=== PATIENT | male | born 1960 | race American Indian/Alaskan Native ===

== ENCOUNTER 2017-05-02 10:43 | Outpatient (CLI) | payer MEDICAID ==
--- NOTE | 2017-05-02 13:05 | Ultrasound Report ---
Renal ultrasound: Chronic kidney disease. Both kidneys appeared to have mild increased in overall echogenicity. The overall findings bilaterally otherwise appear generally unremarkable. The right renal length is 10.9 cm and the left renal length is 12.2 cm. The urinary bladder is somewhat contracted but not otherwise remarkable. Impression: Echogenic kidneys consistent with medical.
== END 2017-05-02 10:44 | disposition home or self-care (01) ==
LOC: US 10:43
PROVIDERS: ATTEND Internal Medicine Nephrology
DX: N18.3 Chronic kidney disease, stage 3 (moderate) (principal)
CPT/HCPCS: 76770

== ENCOUNTER 2018-06-09 11:45 | Inpatient (IN) | payer OTHER, MEDICAID ==
--- NOTE | 2018-06-09 13:15 | Emergency Department Report ---
HPI - General Chief Complaint: Arrhythmia/Palpitations Time Seen by Provider: 06/09/18 13:01 - HPI HPI: Room 3 The patient is a 57-year-old male presents with a chief complaint of palpitations. The patient states he awakened this morning at 05:00 and his usual state of health. The patient states at approximately 10:00 he felt his heart going to an abnormal rhythm. Patient states he developed chest pressure, tightness around his neck and diaphoresis. The patient states he was short of breath as well. Patient denied nausea or vomiting. The patient states he took an extra amiodarone (as recommended by his jewel oliving machine operator) at 11:30. While waiting to be seen in the ED the patient states his symptoms resolved spontaneously. The patient now states he feels "great" and has no complaints. Location: Cardiovascular system Duration: [See above] Quality: Pressure, palpitation Severity: Currently 0/10 Modifying factors: [see above] Context: [see above] Mode of transportation: Unknown ED Past Medical Hx - Past Medical History Previous Medical History?: Yes Hx Hypertension: Yes Additional medical history: A fib - Surgical History Past Surgical History?: No Additional Surgical History: Scalp growth excision - Family History Family history: no significant - Social History Smoking Status: Former Smoker (none for over 5 years) Substance Use Type: None (denies illicit drug use) ED Review of Systems ROS: Stated complaint: CHEST PAIN Other details as noted in HPI Constitutional: diaphoresis Eyes: denies: eye pain ENT: denies: throat pain Respiratory: shortness of breath Cardiovascular: chest pain, palpitations Endocrine: no symptoms reported Gastrointestinal: denies: abdominal pain, nausea, vomiting Genitourinary: denies: dysuria Musculoskeletal: denies: back pain Neurological: denies: headache Physical Exam - Physical Exam Vital Signs: Vital Signs 06/09/18 06/09/18 11:54 13:05 Temperature 98 F Pulse Rate 100 H Respiratory 18 18 Rate Blood Pressure 135/98 O2 Sat by Pulse 98 Oximetry Physical Exam: GENERAL: The patient is well-developed well-nourished male lying on stretcher not appear to be in acute distress. [] HEENT: Normocephalic. Atraumatic. Extraocular motions are intact. Patient has moist mucous membranes. NECK: Supple. Trachea midline CHEST/LUNGS: Clear to auscultation. There is no respiratory distress noted. HEART/CARDIOVASCULAR: Regular. There is no tachycardia. There is no gallop rub or murmur. ABDOMEN: Abdomen is soft, nontender. Patient has normal bowel sounds. There is no abdominal distention. SKIN: There is no rash. There is no edema. There is no diaphoresis. NEURO: The patient is awake, alert, and oriented. The patient is cooperative. The patient has normal speech MUSCULOSKELETAL: There is no evidence of acute injury. ED Course Vital Signs 06/09/18 06/09/18 11:54 13:05 Temperature 98 F Pulse Rate 100 H Respiratory 18 18 Rate Blood Pressure 135/98 O2 Sat by Pulse 98 Oximetry - Reevaluation(s) Reevaluation #1: 06/09/18 14:36 Patient states he does not wish to be admitted to the hospital despite his jewel oliving machine operator's recommendations. Patient verbalized understanding of potential increased morbidity and/or mortality should he leave the hospital AGAINST MEDICAL ADVICE. - Consultations Consultation #1: 06/09/18 14:29 Cardiology paged 06/09/18 14:[address] Ceron-recommends patient be admitted to the hospital given chest pain. ED Medical Decision Making - Lab Data Result diagrams: 06/09/18 13:13 06/09/18 13:13 - EKG Data -: EKG Interpreted by Me Rate: tachycardia (EKG #1 time 11:51 reveals A. fib with a rapid ventricular response of 148 bpm) - EKG Data When compared to previous EKG there are: previous EKG unavailable Interpretation: other (EKG #2 time 12:12 reveals normal sinus rhythm at 78 bpm. T-wave inversions in leads 1 and aVL) - Differential Diagnosis A. fib with RVR, ACS, GERD, pericarditis Critical care attestation.: If time is entered above; I have spent that time in minutes in the direct care of this critically ill patient, excluding procedure time. ED Disposition Clinical Impression: Atrial fibrillation with rapid ventricular response Disposition: -07 LEFT AGAINST MED ADVICE Is pt being admited?: No Does the pt Need Aspirin: Yes Condition: Undetermined Referrals: PRIMARY CARE, [Primary Care Provider] - 3-5 Days Time of Disposition: 14:37 (patient leaving AMA)
[2018-06-09 13:43] LABS: Basophils % (Auto) 0.5 % (0.0-1.8); Eosinophils # (Auto) 0.1 K/mm3 (0.0-0.4); Eosinophils % (Auto) 1.6 % (0.0-4.3); Hematocrit 45.3 % (35.5-45.6); Hemoglobin 15.6 gm/dl (11.8-15.2); Lymphocytes # (Auto) 2.7 K/mm3 (1.2-5.4); Lymphocytes % (Auto) 30.3 % (13.4-35.0); Mean Corpuscular HGB Conc 34 % (32-34); Mean Corpuscular Hemoglobin 32 pg (28-32); Mean Corpuscular Volume 93 fl (84-94); Monocytes # (Auto) 0.7 K/mm3 (0.0-0.8); Monocytes % (Auto) 8.4 % (0.0-7.3); Platelet Count 165 K/mm3 (140-440); Red Blood Count 4.87 M/mm3 (3.65-5.03); Red Cell Distribution Width 14.2 % (13.2-15.2)
[2018-06-09 14:21] LABS: Creatine Kinase MB 4.4 ng/mL (0.0-4.0)
[2018-06-09 14:22] LABS: BUN/Creatinine Ratio 12; Blood Urea Nitrogen 21 mg/dL (9-20); Calcium 9.1 mg/dL (8.4-10.2); Hemolysis Index 17
[2018-06-09] MEDS ORDERED: ASPIRIN PO ONE (14:37)
--- NOTE | 2018-06-09 16:21 | XRay Report ---
FINAL REPORT EXAM: XR CHEST 1V AP HISTORY: chest pain TECHNIQUE: upright single view chest PRIORS: None. FINDINGS: Cardiac and mediastinal contours are unremarkable. No focal pulmonary infiltrate is identified. No pleural fluid collection seen. Pulmonary vasculature is unremarkable. IMPRESSION: Negative single-view chest
[2018-06-09] MEDS ORDERED: SODIUM CHLORIDE FLUSH SYRINGE 10 ML IV PRN (16:59)
[2018-06-09] MEDS ORDERED: ZOFRAN IV PRN (16:59)
[2018-06-09] MEDS ORDERED: TYLENOL PO PRN (16:59)
--- NOTE | 2018-06-09 16:59 | History and Physical Report ---
History of Present Illness Date of examination: 06/09/18 Date of admission: 06/09/2018 Chief complaint: Chief complaint: Palpitations and chest pressure since 10 AM History of present illness: LISA: 57-year-old black male with history of hypertension and atrial fibrillation presents with palpitations and chest pressure since 10 AM. He also developed tightness around his neck and diaphoresis. Also developed some shortness of breath. Patient is on amiodarone. Patient took a extra amiodarone on the advise of his trial justice. While waiting in the emergency room the patient's symptoms resolved spontaneously. Has no complaints now. Chest pressure was about 5 on scale of 1-10. Resolved spontaneously. No exacerbating or relieving factors. Past Medical History: Hypertension: Yes Additional medical history: A fib Surgical History: Scalp growth excision Family History: Htn Social History: Former Smoker (none for over 5 years) Substance Use Type: None (denies illicit drug use) Review of Systems ROS: Stated complaint: CHEST PAIN Other details as noted in HPI Constitutional: diaphoresis Eyes: denies: eye pain ENT: denies: throat pain Respiratory: shortness of breath Cardiovascular: chest pain, palpitations Endocrine: no symptoms reported Gastrointestinal: denies: abdominal pain, nausea, vomiting Genitourinary: denies: dysuria Musculoskeletal: denies: back pain Neurological: denies: headache Medications and Allergies Allergies Allergy/AdvReac Type Severity Reaction Status Date / Time amoxicillin Allergy Hives Verified 06/09/18 13:10 cephalexin monohydrate AdvReac BLISTERS Unverified 05/02/17 10:45 [From Keflex] AND WHELPS valacyclovir HCl AdvReac BLISTERS Unverified 05/02/17 10:45 [From Valtrex] AND WHELPS ON SKIN Exam - Physical Exam Narrative exam: Lying in bed comfortably - Constitutional Vitals: Temp Pulse Resp BP Pulse Ox 98 F 62 13 145/96 95 06/09/18 11:54 06/09/18 15:15 06/09/18 15:15 06/09/18 15:15 06/09/18 15:15 General appearance: Present: no acute distress, well-nourished - EENT Eyes: Present: PERRL ENT: hearing intact, clear oral mucosa - Neck Neck: Present: supple, normal ROM - Respiratory Respiratory effort: normal Respiratory: bilateral: CTA - Cardiovascular Heart rate: 60 Rhythm: irregularly irregular Heart Sounds: Present: S1 & S2. Absent: rub, click - Extremities Extremities: no ischemia, pulses intact, pulses symmetrical, No edema Peripheral Pulses: within normal limits - Abdominal General gastrointestinal: Present: soft, non-tender, non-distended, normal bowel sounds Male genitourinary: Present: normal - Rectal Rectal Exam: deferred - Integumentary Integumentary: Present: clear, warm, dry - Musculoskeletal Musculoskeletal: gait normal, strength equal bilaterally - Psychiatric Psychiatric: appropriate mood/affect, intact judgment & insight - Neurologic Neurologic: CNII-XII intact, moves all extremities - Allied Health Allied health notes reviewed: nursing, case management Results - Labs CBC & Chem 7: 06/09/18 13:13 06/09/18 13:13 Labs: Laboratory Last Values WBC 8.8 K/mm3 (4.5-11.0) 06/09/18 13:13 RBC 4.87 M/mm3 (3.65-5.03) 06/09/18 13:13 Hgb 15.6 gm/dl (11.8-15.2) H 06/09/18 13:13 Hct 45.3 % (35.5-45.6) 06/09/18 13:13 MCV 93 fl (84-94) 06/09/18 13:13 MCH 32 pg (28-32) 06/09/18 13:13 MCHC 34 % (32-34) 06/09/18 13:13 RDW 14.2 % (13.2-15.2) 06/09/18 13:13 Plt Count 165 K/mm3 (140-440) 06/09/18 13:13 Lymph % (Auto) 30.3 % (13.4-35.0) 06/09/18 13:13 [place] % (Auto) 8.4 % (0.0-7.3) H 06/09/18 13:13 Eos % (Auto) 1.6 % (0.0-4.3) 06/09/18 13:13 Baso % (Auto) 0.5 % (0.0-1.8) 06/09/18 13:13 Lymph # 2.7 K/mm3 (1.2-5.4) 06/09/18 13:13 [place] # 0.7 K/mm3 (0.0-0.8) 06/09/18 13:13 Eos # 0.1 K/mm3 (0.0-0.4) 06/09/18 13:13 Baso # 0.0 K/mm3 (0.0-0.1) 06/09/18 13:13 Seg Neutrophils % 59.2 % (40.0-70.0) 06/09/18 13:13 Seg Neutrophils # 5.2 K/mm3 (1.8-7.7) 06/09/18 13:13 Sodium 144 mmol/L (137-145) 06/09/18 13:13 Potassium 3.4 mmol/L (3.6-5.0) L 06/09/18 13:13 Chloride 103.7 mmol/L (98-107) 06/09/18 13:13 Carbon Dioxide 27 mmol/L (22-30) 06/09/18 13:13 Anion Gap 17 mmol/L 06/09/18 13:13 BUN 21 mg/dL (9-20) H 06/09/18 13:13 Creatinine 1.7 mg/dL (0.8-1.5) H 06/09/18 13:13 Estimated GFR 51 ml/min 06/09/18 13:13 BUN/Creatinine Ratio 12 % 06/09/18 13:13 Glucose 82 mg/dL (75-100) 06/09/18 13:13 Calcium 9.1 mg/dL (8.4-10.2) 06/09/18 13:13 Total Creatine Kinase 223 units/L (55-170) H 06/09/18 13:13 CK-MB (CK-2) 4.4 ng/mL (0.0-4.0) H 06/09/18 13:13 CK-MB (CK-2) Rel Index 1.9 (0-4) 06/09/18 13:13 Troponin T < 0.010 ng/mL (0.00-0.029) 06/09/18 13:13 - Imaging and Cardiology EKG: report reviewed (sinus tachycardia with a irregular rate of 148 EKG #2 heart rate of 60 with atrial fibrillation) Chest x-ray: report reviewed (no acute findings) Assessment and Plan Advance Directives: Yes (full code) VTE prophylaxis?: Chemical Plan of care discussed with patient/family: Yes - Patient Problems (1) Atrial fibrillation with rapid ventricular response Current Visit: Yes Status: Acute Plan to address problem: Patient on amiodarone Now rate is controlled Will defer to Cardiology reg Cardizem (2) Chest pain Current Visit: Yes Status: Acute Qualifiers: Chest pain type: unspecified Qualified Code(s): R07.9 - Chest pain, unspecified Plan to address problem: Chest pain protocol Serial troponins Lexiscan in the morning (3) HTN (hypertension) Current Visit: Yes Status: Chronic Qualifiers: Hypertension type: essential hypertension Qualified Code(s): I10 - Essential (primary) hypertension Plan to address problem: Add Coreg 6.25 mg po q12 (4) Hypokalemia Current Visit: Yes Status: Acute Plan to address problem: Supplemented (5) DVT prophylaxis Current Visit: Yes Status: Acute Plan to address problem: On Lovenox GI Prophylaxis-Famotidine initiated
[2018-06-09] MEDS ORDERED: PERCOCET 5/325 PO PRN (17:02)
[2018-06-09] MEDS ORDERED: MORPHINE IV PRN (17:02)
[2018-06-09] MEDS ORDERED: NACL 0.9% 1000 ML 1,000 ML IV SCH (17:16)
[2018-06-09] MEDS ORDERED: K-DUR PO ONE (18:00)
[2018-06-09] MEDS: LOVENOX SUB-Q SCH (18:17)
[2018-06-09] MEDS: COREG PO SCH (22:40)
[2018-06-09] MEDS: PEPCID PO SCH (22:40)
[2018-06-09] MEDS: SODIUM CHLORIDE FLUSH SYRINGE 10 ML IV SCH (22:40)
[2018-06-10] MEDS ORDERED: APRESOLINE IV PRN (00:40)
[2018-06-10 06:45] LABS: Basophils # (Auto) 0.1 K/mm3 (0.0-0.1); Basophils % (Auto) 0.6 % (0.0-1.8); Eosinophils # (Auto) 0.1 K/mm3 (0.0-0.4); Eosinophils % (Auto) 1.5 % (0.0-4.3); Hematocrit 46.3 % (35.5-45.6); Hemoglobin 15.9 gm/dl (11.8-15.2); Lymphocytes # (Auto) 2.1 K/mm3 (1.2-5.4); Lymphocytes % (Auto) 24.1 % (13.4-35.0); Mean Corpuscular HGB Conc 34 % (32-34); Mean Corpuscular Hemoglobin 32 pg (28-32); Mean Corpuscular Volume 94 fl (84-94); Monocytes # (Auto) 0.8 K/mm3 (0.0-0.8); Monocytes % (Auto) 9.4 % (0.0-7.3); Platelet Count 160 K/mm3 (140-440); Red Blood Count 4.96 M/mm3 (3.65-5.03); Red Cell Distribution Width 14.3 % (13.2-15.2)
[2018-06-10 06:51] LABS: Alanine Aminotransferase 17 units/L (7-56); Albumin 3.4 g/dL (3.9-5); BUN/Creatinine Ratio 15; Blood Urea Nitrogen 21 mg/dL (9-20); Calcium 9.2 mg/dL (8.4-10.2); Hemolysis Index 6
[2018-06-10 09:14] VITALS: BP 165/104
[2018-06-10] MEDS: PEPCID PO SCH (09:23)
[2018-06-10] MEDS: COREG PO SCH (09:23)
[2018-06-10] MEDS: LOVENOX SUB-Q SCH (09:23)
[2018-06-10] MEDS: SODIUM CHLORIDE FLUSH SYRINGE 10 ML IV SCH (09:23)
--- NOTE | 2018-06-10 10:44 | Consultation ---
History of Present Illness Consult date: 06/10/18 Requesting physician: JASPER KIM Consult reason: atrial fibrillation History of present illness: The pt is a 57 Yo male with a past medical history significant for atrial fibrillation s/p cardioversion and ablation per pt report, dilated CMP with currently normalized EF, HTN, obesity, sleep apnea. He is followed in our office by Dr. Gutierrez (moved here from [place] 1 year ago). He presented with complaints of palpitations and rapid HR. He reports that he was dealing with a stressful personal situation when he noted the onset of his symptoms. He reports that he took an extra dose of amiodarone (as instructed per his previous digital account executive in [place]) and did not notice any improvement in his symptoms and thus decided to seek medical attention. Following arrival, initial ECG demonstrated AFlutter with RVR, HR 148bpm. While waiting to be seen in the ED, he spontaneously converted to NSR and patient states his symptoms resolved. On evaluation, he denies any current complaints. No arrhythmias noted on telemetry overnight. Echo done 07/2017 showed EF 50%, abnormal diastolic function, LA volume index mod increased, mild pulm HTN with RVSP 43mmHg. Lexiscan MPI stress test done 07/2017 was negative for ischemia or scar, EF 40%. Past History Past Medical History: atrial fib, hypertension, other (CHARITY) Social history: denies: smoking, alcohol abuse, prescription drug abuse Medications and Allergies Allergies Allergy/AdvReac Type Severity Reaction Status Date / Time amoxicillin Allergy Hives Verified 06/09/18 13:10 cephalexin monohydrate AdvReac BLISTERS Verified 06/10/18 05:31 [From Keflex] AND WHELPS valacyclovir HCl AdvReac BLISTERS Verified 06/10/18 05:31 [From Valtrex] AND WHELPS ON SKIN Home Medications Medication Instructions Recorded Confirmed Last Taken Type Adult Low Dose Aspirin EC 81 mg PO DAILY 06/10/18 06/10/18 Unknown History Amiodarone HCl [Pacerone] 200 mg PO DAILY 06/10/18 06/10/18 Unknown History Carvedilol [Coreg] 25 mg PO BID 06/10/18 06/10/18 Unknown History Furosemide [Lasix TAB] 40 mg PO QDAY 06/10/18 06/10/18 Unknown History Losartan [Cozaar] 50 mg PO QDAY 06/10/18 06/10/18 Unknown History Potassium Chloride [K-Dur] 40 meq PO DAILY 06/10/18 06/10/18 Unknown History Simvastatin [Zocor TAB] 20 mg PO QHS 06/10/18 06/10/18 Unknown History Spironolactone [Aldactone] 25 mg PO QDAY 06/10/18 06/10/18 Unknown History amLODIPine 25 mg PO DAILY 06/10/18 06/10/18 Unknown History Active Meds: Active Medications Acetaminophen (Tylenol) 650 mg PO Q4H PRN PRN Reason: Pain MILD(1-3)/Fever >100.5/CURRY Amiodarone HCl (Cordarone) 200 mg PO DAILY [facility] Carvedilol (Coreg) 6.25 mg PO BID [facility] Last Admin: 06/10/18 09:23 Dose: 6.25 mg Carvedilol (Coreg) 25 mg PO BID [facility] Enoxaparin Sodium (Lovenox) 40 mg SUB-Q QDAY [facility] Last Admin: 06/10/18 09:23 Dose: 40 mg Famotidine (Pepcid) 20 mg PO BID [facility] Last Admin: 06/10/18 09:23 Dose: 20 mg Furosemide (Lasix) 40 mg PO QDAY [facility] Hydralazine HCl (Apresoline) 5 mg IV Q6H PRN PRN Reason: Hypertension Last Admin: 06/10/18 01:41 Dose: 5 mg Sodium Chloride (Nacl 0.9% 1000 Ml) 1,000 mls @ 75 mls/hr IV DIRECT [facility] Stop: 06/10/18 17:15 Losartan Potassium (Cozaar) 50 mg PO QDAY [facility] Miscellaneous Medication (Adult Low Dose Aspirin Ec) 81 mg PO DAILY [facility] Miscellaneous Medication (Amlodipine) 10 mg PO DAILY [facility] Miscellaneous Medication (Simvastatin) 20 mg PO QHS [facility] Morphine Sulfate (Morphine) 2 mg IV Q4H PRN PRN Reason: Pain, Moderate (4-6) Ondansetron HCl (Zofran) 4 mg IV Q8H PRN PRN Reason: Nausea And Vomiting Oxycodone/Acetaminophen (Percocet 5/325) 1 tab PO Q6H PRN PRN Reason: Pain, Moderate (4-6) Potassium Chloride (K-Dur) 40 meq PO DAILY [facility] Sodium Chloride (Sodium Chloride Flush Syringe 10 Ml) 10 ml IV BID [facility] Last Admin: 06/10/18 09:23 Dose: 10 ml Sodium Chloride (Sodium Chloride Flush Syringe 10 Ml) 10 ml IV PRN PRN PRN Reason: LINE FLUSH Spironolactone (Aldactone) 25 mg PO QDAY [facility] Review of Systems Constitutional: no weight loss, no weight gain, no fever, no chills, no sweats Ears, nose, mouth and throat: no ear pain, no nose pain Cardiovascular: palpitations, rapid/irregular heart beat, high blood pressure, no chest pain, no orthopnea, no edema, no syncope, no lightheadedness, no leg edema Respiratory: no cough, no congestion, no wheezing Gastrointestinal: no abdominal pain, no nausea, no vomiting, no diarrhea, no constipation, no change in bowel habits Genitourinary Male: no dysuria, no hematuria, no flank pain, no discharge, no urinary frequency, no urinary hesitancy Musculoskeletal: no neck stiffness, no neck pain, no shooting arm pain, no arm numbness/tingling, no low back pain, no shooting leg pain Integumentary: no rash, no pruritis, no redness, no sores, no wounds Neurological: no head injury, no paralysis, no weakness, no parathesias, no numbness, no tingling, no seizures, no syncope Psychiatric: no anxiety Endocrine: no cold intolerance, no heat intolerance Hematologic/Lymphatic: no easy bruising, no easy bleeding, no lymphadenopathy Allergic/Immunologic: no urticaria, no wheezing, no persistent infections Physical Examination Vital Signs Temp Pulse Resp BP Pulse Ox 98 F 100 H 18 135/98 98 06/09/18 11:54 06/09/18 11:54 06/09/18 11:54 06/09/18 11:54 06/09/18 11:54 General appearance: no acute distress HEENT: Positive: PERRL, Normocephaly, Mucus Membranes Moist Neck: Positive: neck supple, trachea midline Cardiac: Positive: Reg Rate and Rhythm, S1/S2 Lungs: Positive: clear to auscultation Neuro: Positive: Grossly Intact Abdomen: Positive: Soft. Negative: Tender Skin: Positive: Clear. Negative: Rash, Wound Musculoskeletal: No Fluid Collection, No Pain, Normal Range of Motion Extremities: Absent: edema Results 06/10/18 05:05 06/10/18 05:05 Cardiac Enzymes 06/09/18 06/10/18 Range/Units 13:13 05:05 AST 22 (5-40) units/L CK-MB (CK-2) 4.4 H (0.0-4.0) ng/mL CBC 06/09/18 06/10/18 Range/Units 13:13 05:05 WBC 8.8 8.7 (4.5-11.0) K/mm3 RBC 4.87 4.96 (3.65-5.03) M/mm3 Hgb 15.6 H 15.9 H (11.8-15.2) gm/dl Hct 45.3 46.3 H (35.5-45.6) % Plt Count 165 160 (140-440) K/mm3 Lymph # 2.7 2.1 (1.2-5.4) K/mm3 [place] # 0.7 0.8 (0.0-0.8) K/mm3 Eos # 0.1 0.1 (0.0-0.4) K/mm3 Baso # 0.0 0.1 (0.0-0.1) K/mm3 Comprehensive Metabolic Panel 06/09/18 06/10/18 Range/Units 13:13 05:05 Sodium 144 143 (137-145) mmol/L Potassium 3.4 L 3.5 L (3.6-5.0) mmol/L Chloride 103.7 103.0 (98-107) mmol/L Carbon Dioxide 27 27 (22-30) mmol/L BUN 21 H 21 H (9-20) mg/dL Creatinine 1.7 H 1.4 (0.8-1.5) mg/dL Glucose 82 79 (75-100) mg/dL Calcium 9.1 9.2 (8.4-10.2) mg/dL AST 22 (5-40) units/L ALT 17 (7-56) units/L Alkaline Phosphatase 59 (35-129) units/L Total Protein 6.8 (6.3-8.2) g/dL Albumin 3.4 L (3.9-5) g/dL - Imaging and Cardiology Echo: report reviewed (07/2017 showed EF 50%, abnormal diastolic function, LA volume index mod increased, mild pulm HTN with RVSP 43mmHg. ) EKG: report reviewed, image reviewed EKG interpretations - Telemetry EKG Rhythm: Sinus Rhythm - EKG Supraventricular dysrhythmia: atrial flutter Assessment and Plan Increase home PO amio to 200mg BID. D/w Dr. Gutierrez. Pt with current CHADS score of 1 and thus systemic anticoagulation in regards to AFib/AFlutter is not recommended. Currently stable cardiac status. Pt may discharge home from cardiology standpoint. Assessment and plan reviewed with pt at bedside. Follow up in our [place] office with Dr. Gutierrez on 06/19/2018 @ 9:00AM. The patient has been seen in conjunction with Dr. Cary who agrees with the assessment and plan of care. - Patient Problems (1) Atrial flutter with rapid ventricular response Current Visit: Yes Status: Resolved (2) History of atrial fibrillation Current Visit: Yes Status: Acute (3) HTN (hypertension) Current Visit: Yes Status: Chronic Qualifiers: Hypertension type: essential hypertension Qualified Code(s): I10 - Essential (primary) hypertension (4) CHARITY (obstructive sleep apnea) Current Visit: Yes Status: Acute (5) Obesity Current Visit: Yes Status: Acute
[2018-06-10] MEDS ORDERED: NON-FORMULARY (Amlodipine 10 MG) PO SCH (10:45)
[2018-06-10] MEDS ORDERED: ALDACTONE PO SCH (11:00)
[2018-06-10] MEDS ORDERED: CORDARONE PO SCH (11:00)
[2018-06-10] MEDS ORDERED: K-DUR PO SCH (11:00)
[2018-06-10] MEDS ORDERED: NORVASC PO SCH (11:00)
[2018-06-10] MEDS ORDERED: COZAAR PO SCH (11:00)
[2018-06-10] MEDS ORDERED: COREG PO SCH (11:00)
[2018-06-10] MEDS ORDERED: LASIX PO SCH (11:00)
[2018-06-10] MEDS ORDERED: HALFPRIN EC PO SCH (12:00)
--- NOTE | 2018-06-10 15:01 | Discharge Summary ---
Providers - Providers Date of Admission: 06/09/18 16:59 Date of discharge: 06/10/18 Attending physician: JASPER KIM 06/09/18 17:02 Consult to Physician [CONS] Routine Comment: DR Eula GRIMES NOTIFIED [id number] Consulting Provider: SERGO GUTIERREZ Physician Instructions: Reason For Exam: Afib with Rvr Primary care physician: [employer] MANAGER Hospitalization Condition: Good Hospital course: The patient was in atrial fibrillation with rapid ventricular rate when he came to the ER. Rapid ventricular rate resolved spontaneously in the emergency room and the rate came down to 60/m. Patient was in atrial fibrillation but with controlled rate. Amiodarone was increased to 200 mg twice a day . Patient Problems (1) Atrial fibrillation with rapid ventricular response Current Visit: Yes Status: Acute Plan to address problem: Patient on amiodarone Now rate is controlled Discharge on amiodarone 200 mg every 12 hours Follow up with cardiology (2) Chest pain Current Visit: Yes Status: Acute Qualifiers: Chest pain type: unspecified Qualified Code(s): R07.9 - Chest pain, unspecified Plan to address problem: Lexiscan done 2 months ago Patient refuses Lexiscan and I agree with him (3) HTN (hypertension) Current Visit: Yes Status: Chronic Qualifiers: Hypertension type: essential hypertension Qualified Code(s): I10 - Essential (primary) hypertension Plan to address problem: Add Coreg 6.25 mg po q12 (4) Hypokalemia Current Visit: Yes Status: Acute Plan to address problem: Supplemented Discharge home and follow-up with PCP Disposition: DC-01 TO HOME OR SELFCARE - Discharge Diagnoses (1) Atrial fibrillation with rapid ventricular response Status: Acute (2) Chest pain Status: Acute Qualifiers: Chest pain type: unspecified Qualified Code(s): R07.9 - Chest pain, unspecified (3) HTN (hypertension) Status: Chronic Qualifiers: Hypertension type: essential hypertension Qualified Code(s): I10 - Essential (primary) hypertension (4) Hypokalemia Status: Acute (5) DVT prophylaxis Status: Acute Core Measure Documentation - Palliative Care Palliative Care/ Comfort Measures: Not Applicable - Core Measures Any of the following diagnoses?: none Exam - Physical Exam Narrative exam: Lying in bed comfortably - Constitutional Vitals: Temp Pulse Resp BP Pulse Ox 98.4 F 65 20 165/104 96 06/10/18 08:02 06/10/18 08:02 06/10/18 10:00 06/10/18 09:23 06/10/18 08:02 General appearance: Present: no acute distress, well-nourished - EENT Eyes: Present: PERRL ENT: hearing intact, clear oral mucosa - Neck Neck: Present: supple, normal ROM - Respiratory Respiratory effort: normal Respiratory: bilateral: CTA - Cardiovascular Heart Sounds: Present: S1 & S2. Absent: rub, click - Extremities Extremities: pulses symmetrical, No edema Peripheral Pulses: within normal limits - Abdominal General gastrointestinal: Present: soft, non-tender, non-distended, normal bowel sounds Male genitourinary: Present: normal - Integumentary Integumentary: Present: clear, warm, dry - Musculoskeletal Musculoskeletal: gait normal, strength equal bilaterally - Psychiatric Psychiatric: appropriate mood/affect, intact judgment & insight - Neurologic Neurologic: CNII-XII intact, moves all extremities Plan Activity: no restrictions Diet: low fat, low cholesterol, low salt Follow up with: SERGO GUTIERREZ MD [Staff Physician] - 7 Days (Follow up in our [place] office with Dr. Gutierrez on 06/19/2018 @ 9:00AM.) PRIMARY CAREMD [Primary Care Provider] - 3-5 Days Forms: Work/School Release Form
[2018-06-10] MEDS ORDERED: PRAVACHOL PO SCH ×2 (22:00)
[2018-06-10] MEDS ORDERED: NON-FORMULARY (Simvastatin 20 MG) PO SCH (22:00)
== END 2018-06-10 11:31 | disposition home or self-care (01) | DRG 310 ==
LOC: ED 11:45 → 4A 16:59
PROVIDERS: ADMIT Internal Medicine; ATTEND Internal Medicine
DX: I48.91 Unspecified atrial fibrillation (principal); E87.6 Hypokalemia; I10 Essential (primary) hypertension; I42.0 Dilated cardiomyopathy; G47.33 Obstructive sleep apnea (adult) (pediatric); E66.9 Obesity, unspecified; Z68.37 Body mass index [BMI] 37.0-37.9, adult; Z88.1 Allergy status to other antibiotic agents; Z79.899 Other long term (current) drug therapy
CPT/HCPCS: 36415; 71045; 80048; 80053; 82550; 82553; 83036; 84484; 85025; 93005; 93010; J0360; J1650